=== PATIENT | male | born 1965 | race Caucasian/White ===

== ENCOUNTER → 2016-08-04 | Outpatient (CLI) | payer BC ==
[~2016-08-04] MED LIST: APAP ARTHRITIS650 MG PO; NORCO 325 MG-51 TAB PO; OMEPRAZOLE10 MG PO; ULTRAM 50MG TAB50 MG PO; VYTORIN PO; WARFARIN2 MG PO; [UNRECOGNIZED DRUG - OTHER] IM
== END ==
LOC: LAB 10:50
DX: E29.1 Testicular hypofunction (principal)

== ENCOUNTER → 2017-01-11 | Outpatient (CLI) | payer BC ==
[2011-12-24 20:58] VITALS: BP 125/68
== END ==
LOC: LAB 12:11
DX: E27.40 Unspecified adrenocortical insufficiency (principal); Z12.5 Encounter for screening for malignant neoplasm of prostate; E29.1 Testicular hypofunction; D68.51 Activated protein C resistance; I82.409 Acute embolism and thrombosis of unspecified deep veins of unspecified lower extremity; R35.0 Frequency of micturition